=== PATIENT | female | born 1955 | race Caucasian/White ===

== ENCOUNTER 2017-05-26 18:33 | Emergency (ER) | payer OTHER, BC, MEDICARE ==
[~2017-05-26] VITALS: Ht 170 cm; Wt 86.2 kg
== END 2017-05-26 22:18 | disposition home or self-care (01) ==
LOC: ER 18:33
DX: S16.1XXA Strain of muscle, fascia and tendon at neck level, initial encounter (principal); I10 Essential (primary) hypertension; K21.9 Gastro-esophageal reflux disease without esophagitis; V49.9XXA Car occupant (driver) (passenger) injured in unspecified traffic accident, initial encounter
CPT/HCPCS: 72125; 90471; 90714; 93005; 99284; A9270-GY